=== PATIENT | male | born 1990 ===

== ENCOUNTER 2017-08-16 11:05 | Emergency (ER) | payer OTHER ==
[2017-08-16 11:10] VITALS: RESP 20
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
[2017-08-16] MEDS ORDERED: Naproxen 550 mg Tab PO STA (13:59)
[2017-08-16] MEDS ORDERED: Amoxicillin-Clav 875-125 mg Tab PO STA (13:59)
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
[2017-08-16] MEDS ORDERED: Naproxen 550 mg Tab PO ONE (14:08)
[2017-08-16] MEDS ORDERED: Amoxicillin-Clav 875-125 mg Tab PO ONE (14:08)
[2017-08-16 14:23] VITALS: BP 130/81; PULSE 69; TEMP 97.3; O2SAT 97
== END 2017-08-16 14:23 | disposition home or self-care (01) ==
LOC: C.ER 11:05
DX: S02.81XA Fracture of other specified skull and facial bones, right side, initial encounter for closed fracture (principal); S05.11XA Contusion of eyeball and orbital tissues, right eye, initial encounter; Y08.89XA Assault by other specified means, initial encounter; Y92.9 Unspecified place or not applicable